=== PATIENT | male | born 1930 | race Caucasian/White ===

== ENCOUNTER 2017-07-01 12:40 | Inpatient (IN) | payer MEDICARE, BC ==
[~2017-07-01] VITALS: Ht 170.2 cm; Wt 51.3 kg
[2017-07-01 13:00] VITALS: BP 116/73
[2017-07-01] MEDS ORDERED: Z GUARD REMEDY 2 OZ OINT TP PRN (13:30)
[2017-07-01] MEDS ORDERED: MAGNESIUM HYDROXIDE 30 ML UDC PO PRN (13:30)
[2017-07-01] MEDS ORDERED: MAG HYDROX/AL HYDROX/SIMETH 30 ML UDC PO PRN (13:30)
[2017-07-01] MEDS ORDERED: ZOLPIDEM TARTRATE 5 MG TABLET PO PRN (13:30)
[2017-07-01] MEDS ORDERED: ONDANSETRON HCL/PF 4 MG/2 ML VIAL IVP PRN (13:30)
[2017-07-01 15:00] LABS: ALANINE AMINOTRANSFERASE 46 U/L (12-78); ALBUMIN 3.5 g/dL (3.4-5.0); ALKALINE PHOSPHATASE 114 U/L (46-116); ASPARTATE AMINOTRANSFERASE 28 U/L (15-37); BASOPHILS # (AUTO) 0.1 /CMM (0.0-0.2); BASOPHILS % (AUTO) 0.2 % (0.0-2.0); BILIRUBIN,TOTAL 1.3 mg/dL (0.2-1.0); CALCIUM, SERUM 8.7 mg/dL (8.5-10.1); CARBON DIOXIDE 23 mmol/L (21-32); CHLORIDE 100 mmol/L (98-107); CREATININE 1.2 mg/dL (0.6-1.3); EOSINOPHILS # (AUTO) 0.1 /CMM (0.0-0.7); EOSINOPHILS % (AUTO) 0.4 % (0.0-6.0); GLUCOSE 105 mg/dL (74-106); HEMATOCRIT 30 % (39-51); HEMOGLOBIN 10.3 g/dL (13.5-17.5); LYMPHOCYTES # (AUTO) 9.1 /CMM (0.8-4.8); MEAN CORPUSCULAR HEMOGLOBIN 34 PG (26.0-33.0); MEAN CORPUSCULAR HGB CONC 34 g/dl (31.0-36.0); MEAN CORPUSCULAR VOLUME 100 fL (80-96); MONOCYTES # (AUTO) 2.1 /CMM (0.1-1.30); MONOCYTES % (AUTO) 8.6 % (2.0-12.0); NEUTROPHILS # (AUTO) 13.3 /CMM (1.8-8.9); NEUTROPHILS % (AUTO) 53.8 % (43.0-81.0); PLATELET COUNT (AUTO) 241 /CMM (150-450); POTASSIUM 3.9 mmol/L (3.5-5.1); RDW COEFFICIENT OF VARIATION 14.4 (11.5-15.0); RED BLOOD CELL COUNT(AUTO) 3.01 MIL/uL (4.5-6.0); SODIUM SERUM 135 mmol/L (136-145); TOTAL PROTEIN, SERUM 7.1 g/dL (6.4-8.2); UREA NITROGEN, BLOOD 23 mg/dL (7-18); WHITE BLOOD COUNT (AUTO) 24.7 K/uL (4.3-11.0)
[2017-07-01 15:03] LABS: TROPONIN I < 0.017 ng/mL (0.00-0.056)
[2017-07-01 15:08] LABS: INR 3.96 (0.87-1.13)
[2017-07-01] MEDS ORDERED: SIMV40TA5 PO (15:17)
[2017-07-01] MEDS ORDERED: LATA2.5D7 EACHEYE (15:17)
[2017-07-01] MEDS ORDERED: WARF3TAB59 PO (15:17)
[2017-07-01] MEDS ORDERED: WARF2TAB6 PO (15:17)
[2017-07-01] MEDS ORDERED: POTA10TA15 PO (15:17)
[2017-07-01] MEDS ORDERED: ASPI-1169 PO (15:17)
[2017-07-01] MEDS ORDERED: FURO-145 PO (15:17)
[2017-07-01] MEDS ORDERED: SOTA160T PO (15:17)
[2017-07-01] MEDS ORDERED: RAMI10CA PO (15:17)
[2017-07-01] MEDS ORDERED: CARV6.252 PO (15:17)
[2017-07-01] MEDS ORDERED: PROB500T9 PO (15:17)
[2017-07-01 16:00] VITALS: BP 102/64
[2017-07-01] MEDS ORDERED: PHYTONADIONE 5 MG TABLET PO ONE (17:30)
[2017-07-01] MEDS: ACETAMINOPHEN 325 MG TABLET PO PRN ×2 (18:47→23:40)
[2017-07-01 22:00] VITALS: BP 133/76
[2017-07-02 04:00] VITALS: BP 121/78
[2017-07-02 05:51] LABS: BASOPHILS # (AUTO) 0.1 /CMM (0.0-0.2); BASOPHILS % (AUTO) 0.3 % (0.0-2.0); EOSINOPHILS # (AUTO) 0.2 /CMM (0.0-0.7); EOSINOPHILS % (AUTO) 0.8 % (0.0-6.0); HEMATOCRIT 28 % (39-51); HEMOGLOBIN 10.2 g/dL (13.5-17.5); LYMPHOCYTES # (AUTO) 11.6 /CMM (0.8-4.8); MEAN CORPUSCULAR HEMOGLOBIN 40 PG (26.0-33.0); MEAN CORPUSCULAR HGB CONC 36 g/dl (31.0-36.0); MEAN CORPUSCULAR VOLUME 112 fL (80-96); MONOCYTES # (AUTO) 2.2 /CMM (0.1-1.30); MONOCYTES % (AUTO) 8.6 % (2.0-12.0); NEUTROPHILS # (AUTO) 11.7 /CMM (1.8-8.9); NEUTROPHILS % (AUTO) 45.3 % (43.0-81.0); PLATELET COUNT (AUTO) 229 /CMM (150-450); RDW COEFFICIENT OF VARIATION 14.6 (11.5-15.0); RED BLOOD CELL COUNT(AUTO) 2.53 MIL/uL (4.5-6.0); WHITE BLOOD COUNT (AUTO) 25.8 K/uL (4.3-11.0)
[2017-07-02 06:11] LABS: INR 2.32 (0.87-1.13)
[2017-07-02 06:54] LABS: ALANINE AMINOTRANSFERASE 41 U/L (12-78); ALBUMIN 3.2 g/dL (3.4-5.0); ALKALINE PHOSPHATASE 103 U/L (46-116); ASPARTATE AMINOTRANSFERASE 25 U/L (15-37); BILIRUBIN,TOTAL 1.7 mg/dL (0.2-1.0); CARBON DIOXIDE 22 mmol/L (21-32); CHLORIDE 101 mmol/L (98-107); CREATININE 1.1 mg/dL (0.6-1.3); GLUCOSE 110 mg/dL (74-106); SODIUM SERUM 135 mmol/L (136-145); TOTAL PROTEIN, SERUM 6.8 g/dL (6.4-8.2); UREA NITROGEN, BLOOD 22 mg/dL (7-18)
[2017-07-02 06:55] LABS: EOSINOPHILS % (MANUAL) 3 % (0-4); LYMPHOCYTES % (MANUAL) 32 % (16-48); MONOCYTES % (MANUAL) 9 % (0-11.0); NEUTROPHILS % (MANUAL) 56 (42-76)
[2017-07-02 07:05] LABS: CHOLESTEROL 82 mg/dL (<200); HDL CHOLESTEROL 35 mg/dL (40-60); LDL 47 mg/dL (0-99); TRIGLYCERIDES 45 mg/dL (30-150)
[2017-07-02 08:00] VITALS: BP 127/81
[2017-07-02] MEDS ORDERED: PIPERACILLIN /TAZOBACTAM 4.5 G in IV D5W 50 ML IV SCH (08:00)
[2017-07-02] MEDS ORDERED: LATANOPROST EYE DROP 0.005% 2.5 ML BOTTLE EACHEYE SCH (08:00)
[2017-07-02] MEDS ORDERED: PROBENECID 500 MG TABLET PO SCH (09:00)
[2017-07-02] MEDS: SOTALOL HCL 80 MG TABLET PO SCH ×2 (09:04→20:37)
[2017-07-02] MEDS: FUROSEMIDE 20 MG TABLET PO SCH (09:04)
[2017-07-02] MEDS: CARVEDILOL 6.25 MG TABLET PO SCH ×2 (09:04→20:37)
[2017-07-02] MEDS: RAMIPRIL 5 MG CAPSULE PO SCH (09:04)
[2017-07-02] MEDS: POTASSIUM CHLORIDE 10 MEQ TABLET.SA PO SCH (09:05)
[2017-07-02] MEDS: HYDROCODONE/APAP 5/325MG 1 EACH TABLET PO PRN ×3 (10:36→19:42)
[2017-07-02] MEDS: PIPERACILLIN /TAZOBACTAM 3.375 G in IV D5W 50 ML IV SCH ×3 (10:53→23:54)
[2017-07-02 12:00] VITALS: BP 111/68
[2017-07-02 16:00] VITALS: BP 92/51
[2017-07-02] MEDS: SIMVASTATIN 40 MG TABLET PO SCH (17:53)
[2017-07-02] MEDS: DOCUSATE SODIUM 100 MG CAPSULE PO SCH (17:53)
[2017-07-02] MEDS: LATANOPROST EYE DROP 0.005% 2.5 ML BOTTLE EACHEYE SCH (17:54)
[2017-07-02 19:06] LABS: INR 1.44 (0.87-1.13)
[2017-07-02 20:00] VITALS: BP 97/46
[2017-07-02 21:16] VITALS: BP 97/47
[2017-07-02] MEDS: SENNOSIDES 8.6 MG TABLET PO SCH (21:44)
[2017-07-03] VITALS (8 sets, daily range): BP systolic 87–123; BP diastolic 50–72
[2017-07-03 05:07] LABS: BASOPHILS # (AUTO) 0.1 /CMM (0.0-0.2); BASOPHILS % (AUTO) 0.4 % (0.0-2.0); EOSINOPHILS # (AUTO) 0.2 /CMM (0.0-0.7); EOSINOPHILS % (AUTO) 0.5 % (0.0-6.0); HEMATOCRIT 31 % (39-51); HEMOGLOBIN 10.8 g/dL (13.5-17.5); LYMPHOCYTES # (AUTO) 12.9 /CMM (0.8-4.8); LYMPHOCYTES % (AUTO) 38.3 % (20.0-44.0); MEAN CORPUSCULAR HEMOGLOBIN 36 PG (26.0-33.0); MEAN CORPUSCULAR HGB CONC 35 g/dl (31.0-36.0); MEAN CORPUSCULAR VOLUME 104 fL (80-96); MONOCYTES # (AUTO) 2.5 /CMM (0.1-1.30); MONOCYTES % (AUTO) 7.6 % (2.0-12.0); NEUTROPHILS # (AUTO) 17.9 /CMM (1.8-8.9); NEUTROPHILS % (AUTO) 53.2 % (43.0-81.0); PLATELET COUNT (AUTO) 272 /CMM (150-450); RDW COEFFICIENT OF VARIATION 14.9 (11.5-15.0); RED BLOOD CELL COUNT(AUTO) 2.99 MIL/uL (4.5-6.0)
[2017-07-03 05:18] LABS: CALCIUM, SERUM 8.8 mg/dL (8.5-10.1); CARBON DIOXIDE 23 mmol/L (21-32); CHLORIDE 97 mmol/L (98-107); CREATININE 1.1 mg/dL (0.6-1.3); GLUCOSE 119 mg/dL (74-106); PHOSPHORUS 3.5 mg/dL (2.5-4.9); POTASSIUM 3.7 mmol/L (3.5-5.1); SODIUM SERUM 132 mmol/L (136-145); UREA NITROGEN, BLOOD 23 mg/dL (7-18)
[2017-07-03 05:25] LABS: WHITE BLOOD COUNT (AUTO) 33.6 K/uL (4.3-11.0)
[2017-07-03 05:26] LABS: INR 1.27 (0.87-1.13)
[2017-07-03 06:03] LABS: LYMPHOCYTES % (MANUAL) 34 % (16-48); MONOCYTES % (MANUAL) 6 % (0-11.0); NEUTROPHILS % (MANUAL) 60 (42-76)
[2017-07-03] MEDS: PIPERACILLIN /TAZOBACTAM 3.375 G in IV D5W 50 ML IV SCH ×4 (06:03→23:16)
[2017-07-03] MEDS ORDERED: BACITRACIN 50000 UNITS/VIAL ONE (08:25)
[2017-07-03] MEDS: CARVEDILOL 6.25 MG TABLET PO SCH ×2 (09:00→20:44)
[2017-07-03] MEDS: SOTALOL HCL 80 MG TABLET PO SCH ×2 (09:00→20:42)
[2017-07-03] MEDS: DOCUSATE SODIUM 100 MG CAPSULE PO SCH ×2 (09:00→17:38)
[2017-07-03] MEDS: FUROSEMIDE 20 MG TABLET PO SCH (09:00)
[2017-07-03] MEDS: POTASSIUM CHLORIDE 10 MEQ TABLET.SA PO SCH (09:00)
[2017-07-03] MEDS: RAMIPRIL 5 MG CAPSULE PO SCH (09:00)
[2017-07-03] MEDS: ACETAMINOPHEN 325 MG TABLET PO PRN (12:04)
[2017-07-03] MEDS: LATANOPROST EYE DROP 0.005% 2.5 ML BOTTLE EACHEYE SCH (17:45)
[2017-07-03] MEDS: SIMVASTATIN 40 MG TABLET PO SCH (17:45)
[2017-07-03] MEDS ORDERED: IV NS 0.9% 500 ML IV ONE (18:30)
[2017-07-03] MEDS: SENNOSIDES 8.6 MG TABLET PO SCH (21:34)
[2017-07-04] VITALS (9 sets, daily range): BP systolic 99–111; BP diastolic 53–68
[2017-07-04] MEDS: PIPERACILLIN /TAZOBACTAM 3.375 G in IV D5W 50 ML IV SCH (05:02)
[2017-07-04] MEDS: ACETAMINOPHEN 325 MG TABLET PO PRN ×2 (05:08→14:41)
[2017-07-04] MEDS: SOTALOL HCL 80 MG TABLET PO SCH ×2 (09:00→20:52)
[2017-07-04] MEDS: CARVEDILOL 6.25 MG TABLET PO SCH ×2 (09:00→20:51)
[2017-07-04] MEDS: RAMIPRIL 5 MG CAPSULE PO SCH (09:00)
[2017-07-04] MEDS: FUROSEMIDE 20 MG TABLET PO SCH (09:00)
[2017-07-04] MEDS: POTASSIUM CHLORIDE 10 MEQ TABLET.SA PO SCH (09:20)
[2017-07-04] MEDS: DOCUSATE SODIUM 100 MG CAPSULE PO SCH ×2 (09:20→17:35)
[2017-07-04] MEDS: ENOXAPARIN SODIUM 60 MG/0.6 ML DISP.SYRIN SQ SCH ×2 (09:23→20:49)
[2017-07-04 10:14] LABS: BASOPHILS # (AUTO) 0.1 /CMM (0.0-0.2); BASOPHILS % (AUTO) 0.2 % (0.0-2.0); EOSINOPHILS # (AUTO) 0.2 /CMM (0.0-0.7); EOSINOPHILS % (AUTO) 0.9 % (0.0-6.0); HEMATOCRIT 23 % (39-51); HEMOGLOBIN 7.9 g/dL (13.5-17.5); LYMPHOCYTES # (AUTO) 8.7 /CMM (0.8-4.8); LYMPHOCYTES % (AUTO) 34.1 % (20.0-44.0); MEAN CORPUSCULAR HEMOGLOBIN 36 PG (26.0-33.0); MEAN CORPUSCULAR HGB CONC 34 g/dl (31.0-36.0); MEAN CORPUSCULAR VOLUME 106 fL (80-96); MONOCYTES # (AUTO) 1.8 /CMM (0.1-1.30); MONOCYTES % (AUTO) 6.9 % (2.0-12.0); NEUTROPHILS # (AUTO) 14.7 /CMM (1.8-8.9); NEUTROPHILS % (AUTO) 57.9 % (43.0-81.0); PLATELET COUNT (AUTO) 209 /CMM (150-450); RDW COEFFICIENT OF VARIATION 15.2 (11.5-15.0); RED BLOOD CELL COUNT(AUTO) 2.18 MIL/uL (4.5-6.0); WHITE BLOOD COUNT (AUTO) 25.4 K/uL (4.3-11.0)
[2017-07-04] MEDS: PIPERACILLIN /TAZOBACTAM 2.25 G in IV NS 0.9% 50 ML IV SCH ×2 (12:23→17:35)
[2017-07-04 13:19] LABS: EOSINOPHILS % (MANUAL) 2 % (0-4); LYMPHOCYTES % (MANUAL) 43 % (16-48); MONOCYTES % (MANUAL) 9 % (0-11.0); NEUTROPHILS % (MANUAL) 46 (42-76)
[2017-07-04] MEDS: SIMVASTATIN 40 MG TABLET PO SCH (17:35)
[2017-07-04] MEDS: LATANOPROST EYE DROP 0.005% 2.5 ML BOTTLE EACHEYE SCH (17:35)
[2017-07-04] MEDS: SENNOSIDES 8.6 MG TABLET PO SCH (20:52)
[2017-07-05] MEDS: PIPERACILLIN /TAZOBACTAM 2.25 G in IV NS 0.9% 50 ML IV SCH ×3 (00:58→12:49)
[2017-07-05 08:00] VITALS: BP 98/67
[2017-07-05 09:00] VITALS: BP 98/67
[2017-07-05] MEDS: RAMIPRIL 5 MG CAPSULE PO SCH (09:00)
[2017-07-05] MEDS: SOTALOL HCL 80 MG TABLET PO SCH (09:00)
[2017-07-05] MEDS: CARVEDILOL 6.25 MG TABLET PO SCH (09:00)
[2017-07-05] MEDS ORDERED: MINERAL OIL/PETROLATUM,WHITE 120 GM JAR TP PRN (09:30)
[2017-07-05] MEDS: POTASSIUM CHLORIDE 10 MEQ TABLET.SA PO SCH (10:16)
[2017-07-05] MEDS: FUROSEMIDE 20 MG TABLET PO SCH (10:16)
[2017-07-05] MEDS: DOCUSATE SODIUM 100 MG CAPSULE PO SCH (10:16)
[2017-07-05] MEDS: ENOXAPARIN SODIUM 60 MG/0.6 ML DISP.SYRIN SQ SCH (10:17)
[2017-07-05] MEDS: ACETAMINOPHEN 325 MG TABLET PO PRN (15:48)
== END 2017-07-05 15:35 | DRG 481 ==
LOC: MED 12:40 → TELE 13:14 → MED 07-04 08:57
PROVIDERS: ADMIT Internal Medicine; ATTEND Internal Medicine
PROC: 0QS706Z Reposition Left Upper Femur with Intramedullary Internal Fixation Device, Open Approach (ICD-10-PCS; principal; 2017-07-03 08:00)
DX: S72.142A Displaced intertrochanteric fracture of left femur, initial encounter for closed fracture (principal); I50.22 Chronic systolic (congestive) heart failure; D68.59 Other primary thrombophilia; I27.20 Pulmonary hypertension, unspecified; I11.0 Hypertensive heart disease with heart failure; R65.10 Systemic inflammatory response syndrome (SIRS) of non-infectious origin without acute organ dysfunction; E44.1 Mild protein-calorie malnutrition; J98.11 Atelectasis; Z68.1 Body mass index [BMI] 19.9 or less, adult; I36.1 Nonrheumatic tricuspid (valve) insufficiency; I25.5 Ischemic cardiomyopathy; I25.10 Atherosclerotic heart disease of native coronary artery without angina pectoris; W10.9XXA Fall (on) (from) unspecified stairs and steps, initial encounter; D72.829 Elevated white blood cell count, unspecified; I48.2 Chronic atrial fibrillation; Z95.1 Presence of aortocoronary bypass graft; Z86.73 Personal history of transient ischemic attack (TIA), and cerebral infarction without residual deficits; Z95.810 Presence of automatic (implantable) cardiac defibrillator; Z95.2 Presence of prosthetic heart valve; Z79.01 Long term (current) use of anticoagulants; Y93.9 Activity, unspecified; Y92.009 Unspecified place in unspecified non-institutional (private) residence as the place of occurrence of the external cause
CPT/HCPCS: 36415; 71045-TC; 73502; 80048-TC; 80053-TC; 80061-TC; 83735-TC; 84100-TC; 84484-TC; 85025-TC; 85610-TC; 85730-TC; 86850-TC; 87040-TC; 87081-TC; 87086-TC; 93307-TC; 97116-TC; 97530-TC; A4216; A6209; A6402; C1713; J1100; J1650; J2370; J2405; J2543; J2704; J3490; J7040; J7050; J7060; Z7610